=== PATIENT | female | born 1955 ===

== ENCOUNTER 2023-12-14 11:44 | Outpatient (CLI) | payer MEDICARE, SELFPAY | END 2023-12-14 11:45 | disposition home or self-care (01) | PROVIDERS: PCP Family Medicine; Visit Provider Family Medicine | DX: R03.0 Elevated blood-pressure reading, without diagnosis of hypertension (principal); E78.5 Hyperlipidemia, unspecified; E66.9 Obesity, unspecified; Z13.29 Encounter for screening for other suspected endocrine disorder; Z01.818 Encounter for other preprocedural examination | CPT/HCPCS: 80048; 80061; 84443 ==

== ENCOUNTER 2024-03-25 11:22 | Outpatient (CLI) | payer MEDICARE, SELFPAY | END 2024-03-25 11:23 | disposition home or self-care (01) | PROVIDERS: PCP Family Medicine; Visit Provider Family Medicine | DX: N89.8 Other specified noninflammatory disorders of vagina (principal); H20.9 Unspecified iridocyclitis | CPT/HCPCS: 86038; 86140; 86200 ==

== ENCOUNTER 2024-03-31 10:51 | Outpatient (CLI) | payer MEDICARE, SELFPAY ==
--- NOTE | 2024-03-31 10:45 | CRLHL7_ITS ---
For Patients: As a result of the Century Cures Act, medical imaging exams and procedure reports are released immediately into your electronic medical record. You may view this report before your referring provider. If you have questions, please contact your health care provider. INDICATION: structure felt in vaginal canal, discharge COMPARISON: none TECHNIQUE: 2D wang scale and color Doppler images were acquired of the pelvis using a transabdominal and transvaginal approach. FINDINGS: There is a solid slightly heterogeneous mass associated with the vagina measuring 3.9 x 2.7 x 3.1 cm. The uterus measures 7.3 x 3.5 x 3.9 cm. The endometrium is thickened with multiple cystic areas and measures up to 11.4 millimeters. Multiple small cervical nabothian cysts are present. The right ovary is not visualized and the left ovary measures 2.2 x 2.1 x 1.7 cm. The left ovary demonstrates normal arterial and venous blood flow on color Doppler analysis. Ovoid collection of fluid within the right adnexa is present measuring up to approximately 5.1 cm in length. IMPRESSION: 3.9 cm mass associated with the vagina. Thickened and heterogeneous endometrium with multiple cystic areas measuring up to 11.4 millimeters. Possible right hydrosalpinx. Gynecologic referral recommended. MRI may be necessary for further evaluation. Dictated by Dalton Cruz MD @ 03/31/2024 12:20:06 PM (Electronically Signed)
== END 2024-03-31 10:52 | disposition home or self-care (01) ==
LOC: US 10:52
PROVIDERS: PCP Family Medicine; Visit Provider Family Medicine
DX: R93.89 Abnormal findings on diagnostic imaging of other specified body structures (principal); N89.8 Other specified noninflammatory disorders of vagina; R03.0 Elevated blood-pressure reading, without diagnosis of hypertension
CPT/HCPCS: 76830; 76856; 93976

== ENCOUNTER 2024-05-16 09:46 | Outpatient (CLI) | payer MEDICARE, SELFPAY | END 2024-05-16 09:47 | disposition home or self-care (01) | PROVIDERS: PCP Family Medicine; Visit Provider Family Medicine | DX: E78.00 Pure hypercholesterolemia, unspecified (principal); Z13.21 Encounter for screening for nutritional disorder | CPT/HCPCS: 80048; 82607 ==

== ENCOUNTER 2024-05-21 07:23 | Day surgery (SDC) | payer MEDICARE, SELFPAY ==
[2024-05-21] MEDS: 0.9 % SODIUM CHLORIDE 500 ML 500 ML 100 ML IV (07:30)
[2024-05-21 07:45] VITALS: BP 185/83; PULSE 88; RESP 16; TEMP 36.6; O2SAT 96; BMI 34.1
[2024-05-21] MEDS: SODIUM CHLORIDE 0.9 % (FLUSH) 10 ML SYRINGE IVF (07:50)
[2024-05-21] MEDS: CEFAZOLIN 2 GM INJ IVP (09:00)
--- NOTE | 2024-05-21 09:06 | P.ANES_ITS ---
Anesthesia Charges Start Date/Time Anesthesia Start Date: 05/21/24 Anesthesia Start Time: 08:37 Stop Date/Time Anesthesia Stop Date: 05/21/24 Anesthesia Stop Time: 09:59 Summary Extremes of Age - Over 70 or under 1: ASSOCIATE PROFESSOR OF AUTOMATION Coding CPT Codes CPT Codes: ANESTH HYSTEROSCOPE/GRAPH - 29284 ([id number]) P2 - PATIENT W/MILD SYST DISEASE, QZ - ASSOCIATE PROFESSOR OF AUTOMATION SVC W/O PROFESSOR OF GEOLOGY BY Additional Codes: Summary - Extremes of Age - Over 70 or under 1: ASSOCIATE PROFESSOR OF AUTOMATION ([id number])
--- NOTE | 2024-05-21 09:06 | W.ANESCHARGE ---
Anesthesia Charges Start Date/Time Anesthesia Start Date: 05/21/24 Anesthesia Start Time: 08:37 Stop Date/Time Anesthesia Stop Date: 05/21/24 Anesthesia Stop Time: 09:59 Summary Extremes of Age - Over 70 or under 1: CHOREOGRAPHY DIRECTOR Coding CPT Codes CPT Codes: ANESTH HYSTEROSCOPE/GRAPH - 52561 ([id number]) P2 - PATIENT W/MILD SYST DISEASE, QZ - CHOREOGRAPHY DIRECTOR SVC W/O CROP SUPERVISOR BY Additional Codes: Summary - Extremes of Age - Over 70 or under 1: CHOREOGRAPHY DIRECTOR ([id number])
[2024-05-21] MEDS: LIDOCAINE 1% MDV 20 ML INJECTION (09:11)
[2024-05-21] MEDS: BUPIVACAINE 0.25% 30 ML INJECTION (09:11)
--- NOTE | 2024-05-21 09:52 | P.GYNPRC_ITS ---
Procedure Note Date of procedure: 05/21/24 Will [facility] bill your pro fee for this procedure?: Yes Pre-op diagnosis: 1. Suburethral vaginal mass 2. Postmenopausal bleeding 3. Thickened endometrial stripe on ultrasound Post-op diagnosis: 1. Urethral mass 2. Postmenopausal bleeding 3. Endometrial polyps Procedure: 1. Examination under anesthesia 2. Cystoscopy 3. Hysteroscopy 4. D&C 5. Polypectomy Anesthesia: MAC and local (Paracervical block) Complications: None Surgeon: Kari Baum MD Dermatology Sales Representative: Dulce Sanderson Pathology: specimen obtained, sent to pathology (Endometrial polyps and curettings) Condition: stable Disposition: same day Findings: Exam under anesthesia: The suspected suburethral vaginal mass was found to be a urethral mass, arising from the anterior aspect of the urethral meatus. Cystoscopy: Large mass arising from the anterior aspect of the urethral meatus, small urethral polyp in the mid section of the urethra, normal-appearing bladder and ureteral orifices. Hysteroscopy: Multiple endometrial polyps (3) arising from the endometrium. Procedure Description: After obtaining informed consent, the patient was taken to the operating room where she received monitored anesthesia care. She was prepared and draped in the normal sterile fashion, in the dorsal lithotomy position. An examination was performed under anesthesia. It was at this point, that we discovered that the presumed anterior vaginal mass was in fact, arising from the anterior po rtion of the urethral meatus, not the vaginal mucosa, and that the urethral opening was located inferior to the mass. This was confirmed by placing a small I and O catheter through the urethra, and clear urine was noted to come through the catheter. Cystoscopy was then performed, using sterile normal saline as distending medium gravity drainage. Findings were noted above. The cystoscope was then removed. Pictures were taken using the camera system both during the cystoscopy and of the urethral mass. An open-sided bivalve speculum was introduced into the vagina and the cervix visualized. The anterior lip of the cervix was grasped with a single-tooth tenaculum for traction. A paracervical block was then administered using a total of 20 mL of a 50/50 mixture of 0.25% Marcaine and 1% lidocaine plain. The uterus was gently sounded. Sound length was 9 cm. The cervix was gently passively dilated to a #7 Hegar dilator. A hysteroscope was then advanced under direct visualization through the cervix into the uterine cavity. Sterile normal saline was used as distending medium. The uterine cavity was carefully inspected with the findings noted above. Pictures were taken for documentation purposes, but due to an error setting up the camera system, the pictures were not saved in the system. The TruClear morcellator was inserted through the operating channel in the hysteroscope. The morcellator was used to remove the polypoid tissue. The hysteroscope was then removed. The endometrial lining was then sharply curetted and little additional tissue recovered. The hysteroscope was removed. The tenaculum was removed. There was little bleeding from the tenaculum site, which was controlled with direct pressure sponge stick. All instruments were then removed. The patient tolerated the procedure well. Sponge, lap, needle, and instrument counts reported as correct x2. The patient was taken to the recovery room awake in a stable condition. She received 2 g of IV Ancef preoperatively.
[2024-05-21 09:55] VITALS: BP 146/93; PULSE 78; RESP 16; TEMP 37.1; O2SAT 96
[2024-05-21 10:00] VITALS: BP 150/94; PULSE 79; RESP 16; O2SAT 95
[2024-05-21 10:15] VITALS: BP 161/87; PULSE 74; RESP 16; O2SAT 98
[2024-05-21 10:30] VITALS: BP 163/90; PULSE 68; RESP 16; O2SAT 97
[2024-05-21 10:45] VITALS: BP 175/93; PULSE 73; RESP 16; O2SAT 98
== END 2024-05-21 11:03 | disposition home or self-care (01) ==
PROVIDERS: PCP Family Medicine; Visit Provider Obstetrics & Gynecology
PROC: 0UDB8ZZ Extraction of Endometrium, Via Natural or Artificial Opening Endoscopic (ICD-10-PCS; CPT 58558; principal; 2024-05-21 08:45)
DX: N95.0 Postmenopausal bleeding (principal); N84.0 Polyp of corpus uteri; R93.89 Abnormal findings on diagnostic imaging of other specified body structures; N36.8 Other specified disorders of urethra; E66.9 Obesity, unspecified; Z72.0 Tobacco use
CPT/HCPCS: 58558; 52000; 00952; 88305; 99100; J2003; C1782; J0665; J0690; J1100; J1885; J2250; J2405; J2704; J3490; J7030

== ENCOUNTER 2024-06-27 09:17 | Outpatient (CLI) | payer MEDICARE, SELFPAY ==
--- NOTE | 2024-06-27 09:45 | CRLHL7_ITS ---
For Patients: As a result of the Century Cures Act, medical imaging exams and procedure reports are released immediately into your electronic medical record. You may view this report before your referring provider. If you have questions, please contact your health care provider. INDICATION: Vaginal mass. COMPARISON: Pelvic ultrasound dated 31 March 2024. TECHNIQUE: Pelvic MRI with T1, T2, and postcontrast images. Intravenous gadolinium administered. FINDINGS: A few small uterine fibroids with the largest located in the fundus of the uterus measuring 1.2 cm. Small nabothian cysts in the cervix. Normal size of the endometrial stripe. 5.1 x 2.7 x 2.3 cm heterogeneous enhancing vaginal mass. No evidence of extension beyond the vagina. Normal appearance of the urethra. 1.0 x 0.3 cm subcutaneous cyst in the right labia majora. 7.0 x 2.4 x 2.1 cm tubular right adnexal cyst involving the right ovary. A few very small left ovarian cyst. No pelvic adenopathy. No other bony or soft tissue abnormalities identified. Impression : 1. 5.1 cm enhancing vaginal mass may represent vaginal cancer or an irregular polyp. No evidence of extension beyond the vagina. Recommend tissue diagnosis. 2. Tubular right adnexal cyst may represent hydrosalpinx. 3. 1.0 x 0.3 cm subcutaneous cyst in the right labia majora. Dictated by Ian Weaver MD @ 06/29/2024 10:28:05 AM (Electronically Signed)
== END 2024-06-27 09:18 | disposition home or self-care (01) ==
LOC: MRI 09:18
PROVIDERS: PCP Family Medicine; Visit Provider Student in an Organized Health Care Education/Training Program
DX: N89.8 Other specified noninflammatory disorders of vagina (principal)
CPT/HCPCS: 72197; A9575

== ENCOUNTER 2024-10-30 09:20 | Outpatient (CLI) | payer MEDICARE, SELFPAY ==
--- NOTE | 2024-10-30 10:31 | P.ANES_ITS ---
Anesthesia Charges Start Date/Time Anesthesia Start Date: 10/30/24 Anesthesia Start Time: 09:58 Stop Date/Time Anesthesia Stop Date: 10/30/24 Anesthesia Stop Time: 10:26 Summary Extremes of Age - Over 70 or under 1: OPEN HEARTH WORKER Coding CPT Codes CPT Codes: ANES LWR INTST SCR COLSC - 87896 ([id number]) P2 - PATIENT W/MILD SYST DISEASE, QK - CORPORATE LOGISTICS MANAGER 2-4 CNCRNT ANES PROC, QX - OPEN HEARTH WORKER SVC W/ MD MED DIRECTION Additional Codes: Summary - Extremes of Age - Over 70 or under 1: OPEN HEARTH WORKER ([id number])
--- NOTE | 2024-10-30 10:31 | W.ANESCHARGE ---
Anesthesia Charges Start Date/Time Anesthesia Start Date: 10/30/24 Anesthesia Start Time: 09:58 Stop Date/Time Anesthesia Stop Date: 10/30/24 Anesthesia Stop Time: 10:26 Summary Extremes of Age - Over 70 or under 1: SERVICE LINE COORDINATOR Coding CPT Codes CPT Codes: ANES LWR INTST SCR COLSC - 36723 ([id number]) P2 - PATIENT W/MILD SYST DISEASE, QK - MINE SURVEYOR 2-4 CNCRNT ANES PROC, QX - SERVICE LINE COORDINATOR SVC W/ MD MED DIRECTION Additional Codes: Summary - Extremes of Age - Over 70 or under 1: SERVICE LINE COORDINATOR ([id number])
--- NOTE | 2024-10-30 11:08 | P.ANES_ITS ---
Anesthesia Charges Start Date/Time Anesthesia Start Date: 10/30/24 Anesthesia Start Time: 09:58 Stop Date/Time Anesthesia Stop Date: 10/30/24 Anesthesia Stop Time: 10:26 Summary Extremes of Age - Over 70 or under 1: MDA Coding CPT Codes CPT Codes: ANES LWR INTST SCR COLSC - 48256 ([id number]) P2 - PATIENT W/MILD SYST DISEASE, QK - BRICK PAVER 2-4 CNCRNT ANES PROC, QX - DOCUMENT MANAGEMENT SPECIALIST SVC W/ MD MED DIRECTION Additional Codes: Summary - Extremes of Age - Over 70 or under 1: MDA ([id number])
--- NOTE | 2024-10-30 11:08 | W.ANESCHARGE ---
Anesthesia Charges Start Date/Time Anesthesia Start Date: 10/30/24 Anesthesia Start Time: 09:58 Stop Date/Time Anesthesia Stop Date: 10/30/24 Anesthesia Stop Time: 10:26 Summary Extremes of Age - Over 70 or under 1: MDA Coding CPT Codes CPT Codes: ANES LWR INTST SCR COLSC - 77541 ([id number]) P2 - PATIENT W/MILD SYST DISEASE, QK - MANUFACTURED BUILDINGS REPAIRER 2-4 CNCRNT ANES PROC, QX - LEAD EMBEDDED SOFTWARE ENGINEER SVC W/ MD MED DIRECTION Additional Codes: Summary - Extremes of Age - Over 70 or under 1: MDA ([id number])
== END 2024-10-30 09:21 | disposition home or self-care (01) ==
LOC: OP CLINIC 09:21
PROVIDERS: PCP Family Medicine; Visit Provider Internal Medicine
DX: Z12.11 Encounter for screening for malignant neoplasm of colon (principal); R19.5 Other fecal abnormalities
CPT/HCPCS: 00812; 45378; 99100; J2704